=== PATIENT | male | born 1945 | race Caucasian/White ===

== ENCOUNTER → 2016-06-08 | Outpatient (CLI) | payer MEDICARE, BC ==
[~2016-06-08] MED LIST: ASA CHILDREN'S81 MG PO; CILOSTAZOL100 MG PO; PRESERVISION A1 EAC2 PO; PRILOSEC DPS20 MG PO; SYNTHROID150 MCG PO; THERA1 EACH PO; TOPROL XL100 MG PO; ZOCOR80 MG PO; ZOFRAN ODT4 MG PO
== END | disposition home or self-care (01) ==
LOC: RAD.S 08:58
DX: I10 Essential (primary) hypertension (principal)